=== PATIENT | male | born 1980 | race Caucasian/White ===

== ENCOUNTER 2016-11-22 21:50 | Emergency (ER) | payer OTHER ==
[~2016-11-22] VITALS: Ht 180.3 cm; Wt 79.5 kg
[2016-11-22 22:04] VITALS: Ht 180.3 cm; Wt 79.5 kg
--- NOTE | 2016-11-22 22:22 | ERA ---
ER Documentation Chief Complaint Date/Time DATE: 11/22/16 TIME: 22:21 Chief Complaint backpain, "hurts when breathing" post being tackled by police HPI The patient is a 35-year-old male, presenting to the ER because of upper and lower back pain after he was being tackled by the police while running away. The pain is 10.8/10, worse with movement. He denies any other injury. He denies headache, neck pain, abdominal pain, vomiting, dysuria, diarrhea. He does amphetamine, smokes socially, denies drinking Past medical history: Herpes Past surgical history: None ROS All systems reviewed and are negative except as per history of present illness. Medications Home Meds Active Scripts Ibuprofen* (Motrin*) 600 Mg Tab, 600 MG PO Q6H Y for PAIN AND OR ELEVATED TEMP, #20 TAB Prov:CARRIE DORANTES MD 11/22/16 Reported Medications Acyclovir* (Acyclovir*) 400 Mg Tablet, 400 MG PO BID, TAB 11/22/16 Allergies Allergies: Coded Allergies: No Known Allergies (Verified Allergy, Mild, 11/22/16) PMhx/Soc History of Surgery: No Anesthesia Reaction: No Hx Neurological Disorder: No Hx Respiratory Disorders: No Hx Cardiac Disorders: No Hx Psychiatric Problems: No Hx Miscellaneous Medical Probl: Yes (herpes) Hx Alcohol Use: Yes (occasionally) Hx Substance Use: Yes (meth last used today 11/22/2016) Hx Tobacco Use: Yes Smoking Status: Current every day smoker Physical Exam Vitals Vital Signs Date Time Temp Pulse Resp B/P Pulse Ox O2 Delivery O2 Flow Rate FiO2 11/22/16 22:04 98.0 104 16 132/77 98 Physical Exam Const: No acute distress. Head: Atraumatic. Eyes: Normal Conjunctiva. ENT: Normal External Ears, Nose and Mouth. Neck: Full range of motion. No meningismus. Resp: Clear to auscultation bilaterally. Cardio: Regular rate and rhythm, no murmurs. Abd: Soft, non distended, normal bowel sounds, non tender. Skin: No petechiae or rashes. Back: Vague spinal tenderness. No crepitus, erythema Ext: No cyanosis, or edema. Neur: Awake and alert. No focal deficit Psych: Normal Mood and Affect. Procedures/[address], [place] [address] Radiology Main Line: [phone] DIAGNOSTIC IMAGING REPORT Patient: LUIS PATEL : 1980 Age: 35 Sex: M MR #: [id number] DOS: 11/22/162227 Ordering MD: CARRIE DORANTES MD Location: E/R Room/Bed: PROCEDURE: XR thoracic spine CLINICAL INDICATION: Back pain. TECHNIQUE: AP, swimmers and lateral views of the thoracic spine were obtained. COMPARISON: None available FINDINGS: Bone architecture and mineralization are preserved. Thoracic kyphosis is preserved. Vertebral body stature is intact. No significant disk space narrowing is present. No lytic or blastic lesion is evident. The posterior elements and paraspinal soft tissues are normal. RPTAT:HJJR IMPRESSION: Unremarkable thoracic spine series. Zbigniew Angelo Physician Date Time Electronically viewed and signed by Zbigniew Angelo Physician on 11/22/2016 23:54 JR/ CC: CARRIE DORANTES MD [place] [id number] Radiology Main Line: [phone] DIAGNOSTIC IMAGING REPORT Patient: LUIS PATEL : 1980 Age: 35 Sex: M MR #: [id number] DOS: 11/22/162227 Ordering MD: CARRIE DORANTES MD Location: E/R Room/Bed: PROCEDURE: XR Lumbar Spine. CLINICAL INDICATION: Low back pain. TECHNIQUE: AP, cone-down lateral, and lateral views of the lumbar spine were obtained. COMPARISON: None. FINDINGS: Mineralization is within normal limits. Vertebral bodies are normal in height. Hypoplastic ribs are seen at T12. Incidental note is made of spina bifida occulta at L5 and S1 No fracture is identified. Lumbar lordosis is preserved. No vertebral subluxation is seen. The intervertebral discs are normal in height. Paraspinal contours are unremarkable. RPTAT:HJJR IMPRESSION: Spina bifida occulta at L5 and S1. Otherwise unremarkable lumbar spine series. Zbigniew Angelo Physician Date Time Electronically viewed and signed by Physician Ezekiel on 11/22/2016 23:53 JR/ CC: CARRIE DORANTES MD [place] [id number] Radiology Main Line: [phone] DIAGNOSTIC IMAGING REPORT Patient: LUIS PATEL : 1980 Age: 35 Sex: M MR #: [id number] DOS: 11/22/16 2228 Ordering MD: ACRRIE DORANTES MD Location: E/R Room/Bed: PROCEDURE: XR Chest. CLINICAL INDICATION: Back pain. TECHNIQUE: Portable AP view of the chest was obtained. COMPARISON: None. FINDINGS: The cardiomediastinal silhouette is within normal limits. The lungs are clear. There is no evidence for pleural effusion, pneumothorax or pulmonary vascular congestion. The osseous structures are intact with no evidence for acute abnormality. RPTAT:HJJR IMPRESSION: No evidence for acute intrathoracic pathology. Physician Ezekiel Date Time Electronically viewed and signed by Physician Ezekiel on 11/22/2016 23:54 JR/ CC: CARRIE DORANTES MD MEDICAL MAKING DECISION: The patient is a 35-year-old male, presenting with acute back pain after altercation with the police, most likely musculoskeletal pain. The differential diagnoses considered include but are not limited to fracture of ribs, collapsed lungs, contusion, sprain Departure Diagnosis: Primary Impression: Medical clearance for incarceration Additional Impression: Back pain Condition: Good Comments He was discharged with Motrin I discussed the findings with the patient. I advised the patient to follow-up with the detention physician tomorrow, sooner if needed and return if any concern. The patient's blood pressure was elevated (>120/80) but appears stable without evidence of hypertension emergency or urgency. The patient was counseled about the risks of hypertension and urged to pursue outpatient monitoring and therapy within a week with their primary care physician. CARRIE DORANTES MD Nov 22, 2016 22:22
[2016-11-22] MEDS ORDERED: ACYC400T2 PO (22:31)
--- NOTE | 2016-11-22 23:54 | RADRPT ---
PROCEDURE: XR Lumbar Spine. CLINICAL INDICATION: Low back pain. TECHNIQUE: AP, cone-down lateral, and lateral views of the lumbar spine were obtained. COMPARISON: None. FINDINGS: Mineralization is within normal limits. Vertebral bodies are normal in height. Hypoplastic ribs are seen at T12. Incidental note is made of spina bifida occulta at L5 and S1 No fracture is identifie d. Lumbar lordosis is preserved. No vertebral subluxation is seen. The intervertebral discs are n ormal in height. Paraspinal contours are unremarkable. RPTAT:HJJR IMPRESSION: Spina bifida occulta at L5 and S1. Otherwise unremarkable lumbar spine series. Physician Ezekiel Date Time Electronically viewed and signed by Physician Ezekiel on 11/22/2016 23:53 /
--- NOTE | 2016-11-22 23:54 | RADRPT ---
PROCEDURE: XR Chest. CLINICAL INDICATION: Back pain. TECHNIQUE: Portable AP view of the chest was obtained. COMPARISON: None. FINDINGS: The cardiomediastinal silhouette is within normal limits. The lungs are clear. There is no evidenc e for pleural effusion, pneumothorax or pulmonary vascular congestion. The osseous structures are i ntact with no evidence for acute abnormality. RPTAT:HJJR IMPRESSION: No evidence for acute intrathoracic pathology. Physician Ezekiel Date Time Electronically viewed and signed by Zbigniew Angelo Physician on 11/22/2016 23:54 JR/
--- NOTE | 2016-11-22 23:54 | RADRPT ---
PROCEDURE: XR thoracic spine CLINICAL INDICATION: Back pain. TECHNIQUE: AP, swimmers and lateral views of the thoracic spine were obtained. COMPARISON: None available FINDINGS: Bone architecture and mineralization are preserved. Thoracic kyphosis is preserved. Vertebral body s tature is intact. No significant disk space narrowing is present. No lytic or blastic lesion is julian dent. The posterior elements and paraspinal soft tissues are normal. RPTAT:HJJR IMPRESSION: Unremarkable thoracic spine series. Physician Ezekiel Date Time Electronically viewed and signed by Physician Ezekiel on 11/22/2016 23:54 /
[2016-11-22] MEDS ORDERED: IBUP-1542 PO (23:59)
== END 2016-11-23 00:04 ==
LOC: E/R 21:50
DX: Z02.9 Encounter for administrative examinations, unspecified (principal); R40.2252 Coma scale, best verbal response, oriented, at arrival to emergency department; S39.92XA Unspecified injury of lower back, initial encounter; F17.210 Nicotine dependence, cigarettes, uncomplicated; R40.2142 Coma scale, eyes open, spontaneous, at arrival to emergency department; R40.2362 Coma scale, best motor response, obeys commands, at arrival to emergency department; X50.9XXA Other and unspecified overexertion or strenuous movements or postures, initial encounter; Y92.9 Unspecified place or not applicable
CPT/HCPCS: 71010; 72072; 72100